=== PATIENT | female | born 1945 | race Caucasian/White ===

== ENCOUNTER 2016-05-06 11:44 | Emergency (ER) | payer MEDICARE, BC ==
[~2016-05-06] VITALS: Ht 157.5 cm; Wt 56.0 kg
[2016-05-06 11:46] VITALS: BP 146/82; PULSE 111; RESP 16; TEMP 100.5; O2SAT 94
[2016-05-06] MEDS ORDERED: DEXI60CA PO (12:06)
[2016-05-06] MEDS ORDERED: SPIRCAP INH (12:06)
[2016-05-06] MEDS ORDERED: DILT120T PO (12:06)
[2016-05-06] MEDS ORDERED: IRBE300T11 PO (12:06)
[2016-05-06] MEDS ORDERED: ROSU10 PO (12:06)
[2016-05-06] MEDS ORDERED: ONDANSETRON HCL 4 MG/2 ML VIAL IVP ONE (12:15)
[2016-05-06] MEDS ORDERED: cefTRIAXone INJ 1,000 MG in SODIUM CHLORIDE 0.9% INJ 100 ML IV ONE (12:15)
[2016-05-06] MEDS ORDERED: MORPHINE SULFATE 4 MG/ML INJ IV PUSH ONE (12:15)
[2016-05-06] MEDS ORDERED: SODIUM CHLOR 0.9% 1000 ML INJ 1,000 ML IV ONE (12:15)
--- NOTE | 2016-05-06 12:18 | PD ---
HPI Chief Complaint: Flank/Kidney Pain Time Seen by Provider: 12:10 Travel History International Travel<30 days: No Contact w/Intl Traveler<30days: No Traveled to known affect area: No History of Present Illness HPI This patient complains of dysuria and urinary frequency. Started 5 days ago. Has progressed to bilateral flank pain. She is developed fever. She is worried about having a kidney infection. She's had one in the past. Severity is moderate. No alleviating factors. PFSH Past Medical History Cancer: Yes (BREAST) Cardiovascular Problems: Yes (htn on meds) High Cholesterol: Yes Hypertension: Yes Respiratory: Yes (copd) ?: Not Past Surgical History Abdominal Surgery: Yes (STENT IMPLANT) Hysterectomy: Yes Oral Surgery: Yes (TOOTH IMPLANTS) Other Surgery: Yes (BREAST BX, THROAT BX) Social History Alcohol Use: No Tobacco Use: No Substance Use: No Allergies-Medications (Allergen,Severity, Reaction): Coded Allergies: Vicodin (Verified Allergy, Intermediate, n/v, 05/06/16) Toprol Xl (Verified Allergy, Unknown, 05/06/16) Reported Meds & Prescriptions Reported Meds & Active Scripts Active Reported Irbesartan 300 Mg Tab 300 Mg PO DAILY Spiriva Handihaler (Tiotropium Inh) 18 Mcg Cap 18 Mcg INH DAILY 1 capsule = 18 mcg Crestor (Rosuvastatin Calcium) 10 Mg Tab 10 Mg PO DAILY Diltiazem (Diltiazem HCl) 120 Mg Tab 300 Mg PO DAILY Dexilant (Dexlansoprazole) 60 Mg Cap 60 Mg PO DAILY Review of Systems General / Constitutional: Positive: Fever Eyes: No: Visual changes HENT: No: Headaches Cardiovascular: Positive: Tachycardia, No: Chest Pain or Discomfort Respiratory: No: Shortness of Breath Gastrointestinal: No: Abdominal Pain Genitourinary: Positive: Frequency, Dysuria, Flank Pain Musculoskeletal: No: Pain Skin: No Rash Neurologic: No: Weakness Psychiatric: No: Depression Endocrine: No: Polydipsia Hematologic/Lymphatic: No: Easy Bruising Physical Exam Narrative GENERAL: Well-nourished, well-developed patient with bilateral flank pain. SKIN: Focused skin assessment reveals no rash and nodules. Skin is Warm and dry. HEAD: Atraumatic. Normocephalic. EYES: Pupils equal and round. No scleral icterus. No injection or drainage. ENT: No nasal bleeding or discharge. Mucous membranes pink and moist. NECK: Trachea midline. No JVD. No meningeal signs CARDIOVASCULAR: Regular rate and rhythm. No murmur appreciated. RESPIRATORY: No accessory muscle use. Clear to auscultation. Breath sounds equal bilaterally. GASTROINTESTINAL: Abdomen soft, mild bilateral lower quadrant tenderness without rebound or guarding, nondistended. Hepatic and splenic margins not palpable. MUSCULOSKELETAL: No obvious deformities. No clubbing. No cyanosis. No edema. Has bilateral CVA tenderness. None in the midline NEUROLOGICAL: Awake and alert. No obvious cranial nerve deficits. Motor grossly within normal limits. Normal speech. PSYCHIATRIC: Appropriate mood and affect; insight and judgment normal. Data Data Last Documented VS Vital Signs Date Time Temp Pulse Resp B/P Pulse Ox O2 Delivery O2 Flow Rate FiO2 05/06/16 12:46 107 20 170/88 92 05/06/16 11:46 100.5 Orders Urinalysis - C+S If Indicated (05/06/16 11:56) Iv Access Insert/Monitor (05/06/16 12:14) Complete Blood Count With Diff (05/06/16 12:14) Basic Metabolic Panel (Bmp) (05/06/16 12:14) Cath For Specimen (05/06/16 12:14) Sodium Chlor 0.9% 1000 Ml Inj (Ns 1000 M (05/06/16 12:15) Ondansetron Inj (Zofran Inj) (05/06/16 12:15) Morphine Inj (Morphine Inj) (05/06/16 12:15) Ceftriaxone Inj (Rocephin Inj) (05/06/16 12:15) Acetaminophen (Tylenol) (05/06/16 12:30) Urine Culture (05/06/16 12:30) Labs Laboratory Tests Test 05/06/16 05/06/16 12:25 12:30 White Blood Count 11.1 TH/MM3 Red Blood Count 4.69 MIL/MM3 Hemoglobin 14.5 GM/DL Hematocrit 42.6 % Mean Corpuscular Volume 91.0 FL Mean Corpuscular Hemoglobin 31.0 PG Mean Corpuscular Hemoglobin 34.0 % Concent Red Cell Distribution Width 13.4 % Platelet Count 170 TH/MM3 Mean Platelet Volume 7.6 FL Neutrophils (%) (Auto) 82.9 % Lymphocytes (%) (Auto) 11.1 % Monocytes (%) (Auto) 5.2 % Eosinophils (%) (Auto) 0.0 % Basophils (%) (Auto) 0.8 % Neutrophils # (Auto) 9.2 TH/MM3 Lymphocytes # (Auto) 1.2 TH/MM3 Monocytes # (Auto) 0.6 TH/MM3 Eosinophils # (Auto) 0.0 TH/MM3 Basophils # (Auto) 0.1 TH/MM3 CBC Comment DIFF FINAL Differential Comment Sodium Level 140 MEQ/L Potassium Level 3.8 MEQ/L Chloride Level 104 MEQ/L Carbon Dioxide Level 28.0 MEQ/L Anion Gap 8 MEQ/L Blood Urea Nitrogen 11 MG/DL Creatinine 0.67 MG/DL Estimat Glomerular Filtration 88 ML/MIN Rate Random Glucose 123 MG/DL Calcium Level 8.5 MG/DL Urine Collection Type CLEAN CATCH Urine Color YELLOW Urine Turbidity MOD Urine pH 6.5 Urine Specific [place] 1.020 Urine Protein 30 mg/dL Urine Glucose (UA) NEG mg/dL Urine Ketones NEG mg/dL Urine Occult Blood MOD Urine Nitrite NEG Urine Bilirubin NEG Urine Leukocyte Esterase MOD Urine RBC 20-24 /hpf Urine WBC INNUM /hpf Urine WBC Clumps MANY Urine Squamous Epithelial 6-8 /hpf Cells Urine Bacteria FEW /hpf Microscopic Urinalysis Comment CULTURE INDICATED Urine Collection Time 12:30 MDM Medical Decision Making Medical Screen Exam Complete: Yes Emergency Medical Condition: Yes Medical Record Reviewed: Yes Differential Diagnosis Pyelonephritis, UTI, dehydration, flu syndrome Narrative Course I have reviewed the patient's electronic medical record. Patient never been to this ER before IV placed I gave her 1 L normal saline IV and 1 g IV Rocephin Urinalysis shows innumerable white cells and inflammatory markers CBC is normal Metabolic profile is normal I gave her dose of IV Zofran and morphine for symptom relief Tylenol for fever given On recheck she feels much improved. She has pyelonephritis I gave her 10 days of Cipro as well as medication for pain and nausea relief. Stable for outpatient follow-up Diagnosis Primary Impression: Pyelonephritis Additional Instructions: The patient was advised to follow up with their physician and return if they worsen. The patient was warned about potential sedation for the medications they will receive on prescription. Med/Other Pt SpecificInfo: Prescription(s) given Scripts Tramadol 50 Mg Tab50 Mg PO Q6H PRN (PAIN) #20 TAB Ref 0 Prov:Kocisko,Rangel J. MD 05/06/16 Ondansetron (Zofran)4 Mg Tab4 Mg PO Q6HR PRN (NAUSEA OR VOMITING) #12 TAB Ref 0 Prov:Rangel Sinha MD 05/06/16 Ciprofloxacin (Cipro)500 Mg [id number] Mg PO BID #20 TAB Ref 0 Prov:Rangel Sinha MD 05/06/16 Disposition: 01 DISCHARGE HOME Condition: Stable Rangel Sinha MD May 06, 2016 12:18
[2016-05-06] MEDS ORDERED: ACETAMINOPHEN 325 MG TAB PO ONE (12:30)
[2016-05-06 12:43] LABS: AUTOMATED NEUTROPHIL # 9.2 TH/MM3 (1.8-7.7); BASOPHIL # 0.1 TH/MM3 (0-0.2); BASOPHIL % 0.8 % (0.0-2.0); HEMATOCRIT 42.6 % (35.0-46.0); LYMPH % 11.1 % (9.0-44.0); LYMPHOCYTE # 1.2 TH/MM3 (1.0-4.8); MONO % 5.2 % (0.0-8.0); NEUT % 82.9 % (16.0-70.0); PLATELET COUNT 170 TH/MM3 (150-450); RED BLOOD COUNT 4.69 MIL/MM3 (4.00-5.30); RED CELL DISTRIBUTION WIDTH 13.4 % (11.6-17.2); WHITE BLOOD COUNT 11.1 TH/MM3 (4.0-11.0)
[2016-05-06 12:46] VITALS: BP 170/88; PULSE 107; RESP 20; O2SAT 92
[2016-05-06 12:46] LABS: GLUCOSE,URINE NEG (NEG); KETONE, URINE NEG (NEG); NITRITE,URINE NEG (NEG); PH, URINE 6.5 (5.0-8.5)
[2016-05-06 12:48] LABS: BLOOD, URINE MOD (NEG)
[2016-05-06 12:49] LABS: HEMO FLAGS DIFF FINAL
[2016-05-06 12:51] LABS: POTASSIUM 3.8 MEQ/L (3.5-5.1)
[2016-05-06 12:51] LABS: METHOD OF COLLECTION CLEAN CATCH; URINE COLOR YELLOW (YELLW/STRAW); WBC, URINE INNUM /hpf (0-5)
[2016-05-06 12:52] LABS: BACTERIA, URINE FEW /hpf; COMMENT (UR) CULTURE INDICATED; CULTURE IF INDICATED CULTURE INDICATED
[2016-05-06] MEDS ORDERED: ZOFR4TAB PO (13:18)
[2016-05-06] MEDS ORDERED: TRAM50TA PO (13:18)
[2016-05-06] MEDS ORDERED: CIPR-9 PO (13:18)
[2016-05-06 13:33] VITALS: BP 143/71; PULSE 76; RESP 20; O2SAT 99
== END 2016-05-06 13:55 | disposition home or self-care (01) ==
LOC: PHED 11:44
DX: N10 Acute pyelonephritis (principal); I10 Essential (primary) hypertension; E78.00 Pure hypercholesterolemia, unspecified; J44.9 Chronic obstructive pulmonary disease, unspecified; B96.20 Unspecified Escherichia coli [E. coli] as the cause of diseases classified elsewhere
CPT/HCPCS: 80048; 81001; 85025; 87077; 87086; 87186; 96365; 96375; 99284; J0696; J2270; J2405; J7030